=== PATIENT | female | born 1950 | race Caucasian/White ===

== ENCOUNTER → 2018-03-24 08:00 | Outpatient (CLI) | payer OTHER, SELFPAY | PROVIDERS: PCP Internal Medicine | DX: Z23 Encounter for immunization (principal) | CPT/HCPCS: 90471; 90686 ==

== ENCOUNTER → 2018-03-25 14:42 | Outpatient (CLI) | payer OTHER, SELFPAY ==
--- NOTE | 2018-03-25 | DI.MG.S_ITS ---
BILATERAL DIGITAL SCREENING MAMMOGRAM 3D/2D WITH CAD: 03/25/2018 CLINICAL: Routine screening. Comparison is made to exams dated: 02/22/2017 mammogram, 01/27/2016 mammogram, and 01/24/2015 mammogram - [facility]. There are scattered fibroglandular elements in both breasts. Current study was also evaluated with a Computer Aided Detection (CAD) system. There is a benign biopsy clip in the right breast. There also are benign biopsy clips in the left breast. No significant masses, calcifications, or other findings are seen in either breast. There has been no significant interval change. IMPRESSION: NEGATIVE There is no mammographic evidence of malignancy. A 1 year screening mammogram is recommended.(03/26/2019) This exam was interpreted at Station ID: [id number]. NOTE: For mammograms, a report in lay terms will be sent to the patient. Approximately 15% of breast malignancies will not be visualized mammographically. In the management of a palpable breast mass, a negative mammogram must not discourage biopsy of a clinically suspicious lesion. Electronically Signed By: Rachel lozano/prince:03/25/2018 16:37:13 copy to: Clara Valles letter sent: Normal Exam ACR BI-RADS Category 1: Negative 3341F
== END ==
PROVIDERS: PCP Internal Medicine; Visit Provider Internal Medicine
DX: Z12.31 Encounter for screening mammogram for malignant neoplasm of breast (principal)
CPT/HCPCS: 77063; 77067

== ENCOUNTER → 2018-12-12 11:01 | Outpatient (CLI) | payer OTHER, SELFPAY ==
[2018-12-12 12:05] LABS: Alanine Aminotransferase 41 IU/L (9-52); Albumin 4.4 g/dL (3.5-5.0); Albumin Globulin Ratio 1.4 (1.0-2.8); Alkaline Phosphatase 92 U/L (38-126); Aspartate Aminotransferase 27 IU/L (14-36); BUN Creatinine Ratio 21.1 (6-22); Bilirubin Total 0.8 mg/dL (0.2-1.3); Blood Urea Nitrogen 19 mg/dL (7-17); Calcium 9.8 mg/dL (8.4-10.2); Carbon Dioxide 28 mmol/L (22-32); Chloride 105 mmol/L (98-107); Cholesterol 161 mg/dL (140-199); Estimated Glomerular Filt Rate > 60.0 mL/min (>60); Globulin 3.1 g/dL (1.7-4.1); Glucose 101 mg/dL (80-110); HDL Cholesterol 44 mg/dL (40-60); HEMOLYSIS < 15 (0-50); LDL Cholesterol Calculated 83 mg/dL (<100); Potassium 4.4 mmol/L (3.4-5.1); Sodium 142 mmol/L (137-145); Total Protein 7.5 g/dL (6.3-8.2); Triglycerides 171 mg/dL (35-150)
[2018-12-12 12:18] LABS: Vitamin D 25 Hydroxy (D3) 40.1 ng/mL (30.0-100.0)
== END ==
PROVIDERS: PCP Internal Medicine; Visit Provider Internal Medicine
DX: E55.9 Vitamin D deficiency, unspecified (principal); E78.5 Hyperlipidemia, unspecified; I10 Essential (primary) hypertension
CPT/HCPCS: 36415; 80053; 80061; 82306

== ENCOUNTER → 2019-04-06 09:18 | Outpatient (CLI) | payer OTHER, SELFPAY ==
--- NOTE | 2019-04-06 | DI.MG.S_ITS ---
BILATERAL DIGITAL SCREENING MAMMOGRAM 3D/2D WITH CAD: 04/06/2019 CLINICAL: Routine screening. Comparison is made to exams dated: 03/25/2018 mammogram, 02/22/2017 mammogram, and 01/27/2016 mammogram - [facility]. The tissue of both breasts is heterogeneously dense. This may lower the sensitivity of mammography. Current study was also evaluated with a Computer Aided Detection (CAD) system. There is a biopsy clip in the right breast. There also are biopsy clips in the left breast. There are mole markers on both breasts. No significant masses, calcifications, or other findings are seen in either breast. There has been no significant interval change. IMPRESSION: NEGATIVE There is no mammographic evidence of malignancy. A 1 year screening mammogram is recommended. This exam was interpreted at Station ID: [id number]. NOTE: For mammograms, a report in lay terms will be sent to the patient. Approximately 15% of breast malignancies will not be visualized mammographically. In the management of a palpable breast mass, a negative mammogram must not discourage biopsy of a clinically suspicious lesion. Electronically Signed By: Edgar abraham/prince:04/06/2019 16:47:03 copy to: Clara Valles letter sent: Normal Exam ACR BI-RADS Category 1: Negative 3341F
== END ==
PROVIDERS: Family Provider Obstetrics & Gynecology; PCP Internal Medicine; Visit Provider Internal Medicine
DX: Z12.31 Encounter for screening mammogram for malignant neoplasm of breast (principal)
CPT/HCPCS: 77063; 77067

== ENCOUNTER → 2019-04-12 08:50 | Outpatient (CLI) | payer OTHER, SELFPAY ==
[2019-04-13 16:41] LABS: Cancer Antigen 125 < 6 U/mL (0-35)
== END ==
PROVIDERS: Family Provider Obstetrics & Gynecology; PCP Internal Medicine; Visit Provider Obstetrics & Gynecology
DX: R14.0 Abdominal distension (gaseous) (principal)
CPT/HCPCS: 36415; 86304

== ENCOUNTER → 2019-05-19 14:51 | Outpatient (CLI) | payer OTHER, SELFPAY | PROVIDERS: Family Provider Obstetrics & Gynecology; PCP Internal Medicine | DX: Z23 Encounter for immunization (principal) | CPT/HCPCS: 90471; 90662 ==

== ENCOUNTER → 2020-04-18 | Outpatient (CLI) | payer OTHER, SELFPAY | PROVIDERS: Family Provider Obstetrics & Gynecology; PCP Internal Medicine; Referring Provider Internal Medicine; Visit Provider Internal Medicine | DX: Z23 Encounter for immunization (principal) | CPT/HCPCS: 90471; 90662 ==

== ENCOUNTER → 2020-05-03 13:23 | Outpatient (CLI) | payer OTHER, SELFPAY ==
--- NOTE | 2020-05-03 13:25 | DI.MG.S_ITS ---
BILATERAL DIGITAL SCREENING MAMMOGRAM 3D/2D WITH CAD: 05/03/2020 CLINICAL: Routine screening. Comparison is made to exams dated: 04/06/2019 mammogram, 03/25/2018 mammogram, and 02/22/2017 mammogram - [facility]. The tissue of both breasts is heterogeneously dense. This may lower the sensitivity of mammography. Current study was also evaluated with a Computer Aided Detection (CAD) system. There is a biopsy clip in the right breast. There also are biopsy clips in the left breast. No significant masses, calcifications, or other findings are seen in either breast. There has been no significant interval change. IMPRESSION: NEGATIVE There is no mammographic evidence of malignancy. A 1 year screening mammogram is recommended. This exam was interpreted at Station ID: [id number]. NOTE: For mammograms, a report in lay terms will be sent to the patient. Approximately 15% of breast malignancies will not be visualized mammographically. In the management of a palpable breast mass, a negative mammogram must not discourage biopsy of a clinically suspicious lesion. Electronically Signed By: Chau dunn/prince:05/03/2020 17:15:21 copy to: Clara Valles letter sent: Normal Exam ACR BI-RADS Category 1: Negative 3341F
== END ==
PROVIDERS: Family Provider Obstetrics & Gynecology; PCP Internal Medicine; Referring Provider Internal Medicine; Visit Provider Internal Medicine
DX: Z12.31 Encounter for screening mammogram for malignant neoplasm of breast (principal)
CPT/HCPCS: 77063; 77067

== ENCOUNTER → 2020-07-04 10:43 | Outpatient (CLI) | payer OTHER, SELFPAY ==
[2020-07-04] MEDS: COVID-19 VACC(MODERNA-1)/PF 100 MCG/0.5 ML VIAL IM (10:51)
== END ==
PROVIDERS: Family Provider Obstetrics & Gynecology; PCP Internal Medicine; Visit Provider Internal Medicine
DX: Z23 Encounter for immunization (principal)
CPT/HCPCS: 0011A; 91301

== ENCOUNTER → 2020-07-31 10:31 | Outpatient (CLI) | payer OTHER, SELFPAY ==
[2020-07-31] MEDS: COVID-19 VACC #2, MRNA(MOD) 100 MCG/0.5 ML VIAL IM (10:32)
== END ==
PROVIDERS: Family Provider Obstetrics & Gynecology; PCP Internal Medicine; Visit Provider Internal Medicine
DX: Z23 Encounter for immunization (principal)
CPT/HCPCS: 0012A; 91301

== ENCOUNTER → 2020-12-04 08:59 | Outpatient (CLI) | payer OTHER, SELFPAY ==
[2020-12-04 10:40] LABS: Alanine Aminotransferase 46 IU/L (<35); Albumin 4.2 g/dL (3.5-5.0); Albumin Globulin Ratio 1.4 (1.0-2.8); Alkaline Phosphatase 112 U/L (38-126); Aspartate Aminotransferase 35 IU/L (14-36); BUN Creatinine Ratio 21.2 (6-22); Bilirubin Total 0.4 mg/dL (0.2-1.3); Blood Urea Nitrogen 22 mg/dL (7-17); Carbon Dioxide 27 mmol/L (22-32); Chloride 106 mmol/L (98-107); Cholesterol 185 mg/dL (140-199); Estimated Glomerular Filt Rate 52.5 mL/min (>60); Glucose 94 mg/dL (80-110); HDL Cholesterol 42 mg/dL (40-60); HEMOLYSIS < 15 (0-50); LDL Cholesterol Calculated 95 mg/dL (<100); Sodium 141 mmol/L (137-145); Total Protein 7.2 g/dL (6.3-8.2); Triglycerides 242 mg/dL (35-150)
== END ==
PROVIDERS: Family Provider Obstetrics & Gynecology; PCP Internal Medicine; Referring Provider Internal Medicine; Visit Provider Internal Medicine
DX: E78.5 Hyperlipidemia, unspecified (principal); I10 Essential (primary) hypertension; N18.2 Chronic kidney disease, stage 2 (mild)
CPT/HCPCS: 36415; 80053; 80061

== ENCOUNTER → 2021-04-03 14:24 | Outpatient (CLI) | payer OTHER, SELFPAY | PROVIDERS: Family Provider Obstetrics & Gynecology; PCP Internal Medicine; Referring Provider Internal Medicine; Visit Provider Internal Medicine | DX: Z23 Encounter for immunization (principal) | CPT/HCPCS: 90471; 90662 ==

== ENCOUNTER → 2021-05-05 16:59 | Outpatient (CLI) | payer OTHER, SELFPAY ==
--- NOTE | 2021-05-05 | DI.MG.S_ITS ---
BILATERAL DIGITAL SCREENING MAMMOGRAM 3D/2D WITH CAD: 05/05/2021 CLINICAL: Routine screening. Comparison is made to exams dated: 05/03/2020 mammogram, 04/06/2019 mammogram, and 03/25/2018 mammogram - [facility]. The tissue of both breasts is heterogeneously dense. This may lower the sensitivity of mammography. Current study was also evaluated with a Computer Aided Detection (CAD) system. There is a biopsy clip in the right breast. There also are biopsy clips in the left breast. No significant masses, calcifications, or other findings are seen in either breast. There has been no significant interval change. IMPRESSION: NEGATIVE There is no mammographic evidence of malignancy. A 1 year screening mammogram is recommended. This exam was interpreted at Station ID: [id number]. NOTE: For mammograms, a report in lay terms will be sent to the patient. Approximately 15% of breast malignancies will not be visualized mammographically. In the management of a palpable breast mass, a negative mammogram must not discourage biopsy of a clinically suspicious lesion. Electronically Signed By: Chau dunn/prince:05/06/2021 08:48:12 copy to: Clara Valles letter sent: Normal Exam ACR BI-RADS Category 1: Negative 3341F
== END ==
PROVIDERS: Family Provider Obstetrics & Gynecology; PCP Internal Medicine; Referring Provider Internal Medicine; Visit Provider Internal Medicine
DX: Z12.31 Encounter for screening mammogram for malignant neoplasm of breast (principal)
CPT/HCPCS: 77063; 77067

== ENCOUNTER → 2021-05-16 09:28 | Outpatient (CLI) | payer OTHER, SELFPAY ==
[2021-05-16] MEDS: COVID-19 VACC #3, MRNA(MOD) 50 MCG/0.25 ML VIAL IM (09:35)
== END ==
PROVIDERS: Family Provider Obstetrics & Gynecology; PCP Internal Medicine; Visit Provider Internal Medicine
DX: Z23 Encounter for immunization (principal)
CPT/HCPCS: 0013A; 91301

== ENCOUNTER → 2022-04-14 16:18 | Outpatient (CLI) | payer OTHER, SELFPAY | PROVIDERS: Family Provider Obstetrics & Gynecology; PCP Internal Medicine; Referring Provider Internal Medicine; Visit Provider Internal Medicine | DX: Z23 Encounter for immunization (principal) | CPT/HCPCS: 90471; 90662 ==

== ENCOUNTER → 2022-06-01 15:53 | Outpatient (CLI) | payer OTHER, SELFPAY ==
--- NOTE | 2022-06-01 15:54 | DI.MG.S_ITS ---
BILATERAL DIGITAL SCREENING MAMMOGRAM 3D/2D WITH CAD: 06/01/2022 CLINICAL: Routine screening. Comparison is made to exams dated: 05/05/2021 mammogram, 05/03/2020 mammogram, 04/06/2019 mammogram, and 03/25/2018 mammogram - [facility]. Both breasts are heterogeneously dense, which may obscure small masses (category c / 51-75% glandular tissue). Current study was also evaluated with a Computer Aided Detection (CAD) system. There is a biopsy clip in the right breast. There also are biopsy clips in the left breast. No significant masses, calcifications, or other findings are seen in either breast. There has been no significant interval change. IMPRESSION: NEGATIVE There is no mammographic evidence of malignancy. A 1 year screening mammogram is recommended. Based on the Tyrer Cuzick model (a risk assessment model) the patient's lifetime risk is 5.9% and her 10 year risk is 4.0%. According to the ACR, ACS, and NCCN guidelines, an annual breast MRI exam along with mammogram is recommended if the patient's lifetime risk is 20% or greater. This exam was interpreted at Station ID: [id number]. NOTE: For mammograms, a report in lay terms will be sent to the patient. Approximately 15% of breast malignancies will not be visualized mammographically. In the management of a palpable breast mass, a negative mammogram must not discourage biopsy of a clinically suspicious lesion. Electronically Signed By: Joni weber/prince:06/02/2022 08:03:08 copy to: Clara Valles letter sent: Normal Exam ACR BI-RADS Category 1: Negative 3341F
== END ==
PROVIDERS: Family Provider Obstetrics & Gynecology; PCP Internal Medicine; Referring Provider Obstetrics & Gynecology; Visit Provider Obstetrics & Gynecology
DX: Z12.31 Encounter for screening mammogram for malignant neoplasm of breast (principal)
CPT/HCPCS: 77063; 77067

== ENCOUNTER → 2022-09-22 10:21 | Outpatient (CLI) | payer OTHER, SELFPAY ==
[2022-09-22 11:12] LABS: Alanine Aminotransferase 35 IU/L (<35); Albumin 4.2 g/dL (3.5-5.0); Albumin Globulin Ratio 1.2 (1.0-2.8); Alkaline Phosphatase 105 U/L (38-126); Aspartate Aminotransferase 26 IU/L (14-36); BUN Creatinine Ratio 18.9 (6-22); Bilirubin Total 0.8 mg/dL (0.2-1.3); Blood Urea Nitrogen 17 mg/dL (7-17); Calcium 9.5 mg/dL (8.4-10.2); Carbon Dioxide 30 mmol/L (22-32); Chloride 104 mmol/L (98-107); Cholesterol 163 mg/dL (140-199); Estimated Glomerular Filt Rate > 60 mL/min (>60); Globulin 3.5 g/dL (1.7-4.1); Glucose 103 mg/dL (80-110); HDL Cholesterol 40 mg/dL (40-60); HEMOLYSIS < 15 (0-50); LDL Cholesterol Calculated 87 mg/dL (<100); Magnesium 2.1 mg/dL (1.6-2.3); Sodium 140 mmol/L (137-145); Total Protein 7.7 g/dL (6.3-8.2); Triglycerides 181 mg/dL (35-150)
[2022-09-22 11:43] LABS: Rubella Antibody IgG 69.2 IU/mL (>15)
[2022-09-22 11:59] LABS: Vitamin B12 271 pg/mL (239-931)
[2022-09-23 12:37] LABS: Rubeola Measles IgG > 300.0 AU/mL (Immune >16.4)
[2022-09-25 09:38] LABS: Mumps Virus IgG Antibody 23.7 AU/mL (Immune >10.9)
== END ==
PROVIDERS: Family Provider Obstetrics & Gynecology; PCP Internal Medicine; Referring Provider Internal Medicine; Visit Provider Internal Medicine
DX: E78.5 Hyperlipidemia, unspecified (principal); I10 Essential (primary) hypertension; I73.00 Raynaud's syndrome without gangrene; N18.30 Chronic kidney disease, stage 3 unspecified
CPT/HCPCS: 36415; 80053; 80061; 82607; 83735; 86735; 86762; 86765

== ENCOUNTER → 2023-10-25 10:46 | Outpatient (CLI) | payer MEDICARE, BC, SELFPAY ==
--- NOTE | 2023-10-25 10:48 | DI.RAD.S_ITS ---
PROCEDURE: XR DEXA AXIAL SKELETON INDICATIONS: osteoporosis COMPARISON: [facility], , DEXA AXIAL SKELETON, 09/17/2016, 10:51. FINDINGS: Lumbar Spine: Bone mineral density 0.988 g/cm2, T score -0.5. Left Hip: Bone mineral density 0.713 g/cm2, T score -1.9. Left Femoral Neck: Bone mineral density 0.697 g/cm2, T score -1.4. Right Hip: Bone mineral density 0.737 g/cm2, T score -1.7. Right Femoral Neck: Bone mineral density 0.788 g/cm2, T score -0.5. Fracture Risk Calculation (when applicable): 10-year fracture risk of a major osteoporotic fracture 8.3% and of a hip fracture 0.8%. (T score greater or equal to -1.0 to: NORMAL) (T score from -1.1 to -2.4: OSTEOPENIA) (T score less than or equal to -2.5: OSTEOPOROSIS) IMPRESSION: 1. Osteopenia of the bilateral hips. Follow-up guidelines as follows: Osteoporosis: Consider a repeat DEXA and Vertebral Fracture Assessment (VFA) exam in 2 years or sooner if medically necessary, to reassess this patient's status. Osteopenia: Consider a repeat DEXA in 2-3 years to reassess this patient's status, or if there is a new clinical indication. Normal: Consider a repeat DEXA in 5 years or sooner, or if there is a new clinical indication. Dictated by: Rachel Nolen M.D. on 10/25/2023 at 13:17 Approved by: Rachel Nolen M.D. on 10/25/2023 at 14:27
== END ==
PROVIDERS: Family Provider Obstetrics & Gynecology; PCP Internal Medicine; Referring Provider Internal Medicine; Visit Provider Internal Medicine
DX: M85.89 Other specified disorders of bone density and structure, multiple sites (principal)
CPT/HCPCS: 77080

== ENCOUNTER → 2023-12-13 11:24 | Outpatient (CLI) | payer MEDICARE, BC, SELFPAY ==
[2023-12-13 13:51] LABS: Add Manual Diff / Slide Review NO; Basophils Absolute Auto 0 /uL (0-100); Basophils Percent Auto 0.6 % (0-2); Eosinophils Absolute Auto 100 /uL (0-450); Eosinophils Percent Auto 1.7 % (2-4); Hematocrit 38.8 % (36-46); Hemoglobin 13.5 g/dL (12.0-16.0); Lymphocytes Absolute Auto 1600 /uL (1100-4500); Lymphocytes Percent Auto 25.1 % (25-40); Mean Corpuscular HGB Conc 34.7 % (30-36); Mean Corpuscular Hemoglobin 31.4 PG (26-34); Mean Corpuscular Volume 90.5 fL (80-100); Monocytes Absolute Auto 400 /uL (0-900); Monocytes Percent Auto 6.9 % (3-14); Neutrophils Absolute Auto 4100 /uL (1500-7000); Neutrophils Percent Auto 65.7 % (50-75); Platelet Count 186 X10^3/uL (150-400); Red Blood Cell Count 4.29 X10^6/uL (4.0-5.2); Red Cell Distribution Width 13.8 % (11.6-14.8); White Blood Cell Count 6.2 X10^3/uL (4.5-11.0)
[2023-12-13 14:27] LABS: Alanine Aminotransferase 27 IU/L (<35); Albumin Globulin Ratio 1.4 (1.0-2.8); Alkaline Phosphatase 99 U/L (38-126); Aspartate Aminotransferase 23 IU/L (14-36); BUN Creatinine Ratio 17.4 (6-22); Bilirubin Total 0.8 mg/dL (0.2-1.3); Blood Urea Nitrogen 19 mg/dL (7-17); Calcium 9.1 mg/dL (8.4-10.2); Carbon Dioxide 29 mmol/L (22-32); Chloride 107 mmol/L (98-107); Cholesterol 183 mg/dL (140-199); Estimated Glomerular Filt Rate 54 mL/min (>60); Globulin 2.8 g/dL (1.7-4.1); Glucose 89 mg/dL (80-110); HDL Cholesterol 48 mg/dL (40-60); HEMOLYSIS < 15 (0-50); LDL Cholesterol Calculated 84 mg/dL (<100); Potassium 4.3 mmol/L (3.4-5.1); Sodium 140 mmol/L (137-145); Total Protein 6.8 g/dL (6.3-8.2); Triglycerides 256 mg/dL (35-150)
== END ==
PROVIDERS: Family Provider Obstetrics & Gynecology; PCP Internal Medicine; Referring Provider Internal Medicine; Visit Provider Internal Medicine
DX: I10 Essential (primary) hypertension (principal); E78.5 Hyperlipidemia, unspecified
CPT/HCPCS: 36415; 80053; 80061; 85025

== ENCOUNTER → 2024-01-04 12:36 | Outpatient (CLI) | payer MEDICARE, BC, SELFPAY ==
--- NOTE | 2024-01-04 12:37 | DI.MG.S_ITS ---
BILATERAL DIGITAL SCREENING MAMMOGRAM 3D/2D WITH CAD: 01/04/2024 CLINICAL: Routine screening. Comparison is made to exams dated: 06/01/2022 mammogram, 05/03/2020 mammogram, and 05/05/2021 mammogram - [facility]. Both breasts are heterogeneously dense, which may obscure small masses (category c / 51-75% glandular tissue). Current study was also evaluated with a Computer Aided Detection (CAD) system. There is a biopsy clip in the right breast. There also are biopsy clips in the left breast. No significant masses, calcifications, or other findings are seen in either breast. There has been no significant interval change. IMPRESSION: NEGATIVE There is no mammographic evidence of malignancy. A 1 year screening mammogram is recommended. Based on the Tyrer Cuzick model (a risk assessment model) the patient's lifetime risk is 5.5% and her 10 year risk is 4.1%. According to the ACR, ACS, and NCCN guidelines, an annual breast MRI exam along with mammogram is recommended if the patient's lifetime risk is 20% or greater. This exam was interpreted at Station ID: [id number]. NOTE: For mammograms, a report in lay terms will be sent to the patient. Approximately 15% of breast malignancies will not be visualized mammographically. In the management of a palpable breast mass, a negative mammogram must not discourage biopsy of a clinically suspicious lesion. Electronically Signed By: Prasanth jason/prince:01/04/2024 16:29:55 copy to: Clara Valles letter sent: Normal Exam ACR BI-RADS Category 1: Negative 3341F
== END ==
PROVIDERS: Family Provider Obstetrics & Gynecology; PCP Internal Medicine; Referring Provider Internal Medicine; Visit Provider Internal Medicine
DX: Z12.31 Encounter for screening mammogram for malignant neoplasm of breast (principal); R92.333 Mammographic heterogeneous density, bilateral breasts
CPT/HCPCS: 77063; 77067

== ENCOUNTER 2024-03-02 10:46 | Day surgery (SDC) | payer MEDICARE, OTHER, SELFPAY ==
--- NOTE | 2024-03-02 | PATH_ITS ---
[facility] Accession Number: [id number] No. of containers..01 Tissue . 01 Material submitted: . colon - DESCENDING COLON POLYP . 01 Diagnosis: DESCENDING COLON POLYP: Tubular adenoma. MRV 03/06/2024 1121 Local . 01 Electronically signed: . Navin Julian MD, PhD, Pathologist NPI- [id number] . 01 Gross description: . Received in formalin with two patient identifiers and descending colon polyp, are three de dios soft tissue fragments ranging from 0.5 x 0.4 x 0.3 cm to 0.8 x 0.6 x 0.5 cm. The largest fragments are inked and bisected. All submitted in A1. ([id number]) /MRV 03/03/2024 1800 Local . 01 Pathologist provided ICD-10: D12.4 . 01 CPT . 896257 Specimen Comment: A courtesy copy of this report has been sent to [phone] Performed at: [address] [id number] MD Chau Wiggins MD Phone: [phone]
[2024-03-02] MEDS: LACTATED RINGERS 1,000 ML 150 ML IV (11:09)
[2024-03-02 11:17] VITALS: BP 167/86; PULSE 85; RESP 16; TEMP 36.3; O2SAT 99
--- NOTE | 2024-03-02 11:43 | P.HP_ITS ---
History of Present Illness History of Present Illness Date Patient Seen: 03/02/24 Time Patient Seen: 11:43 Chief complaint: Screening Colonoscopy Narrative: Noreen is a 74-year-old woman who has a history of colon polyps. No family history cancer REPLACED BY [facility] Medical History (Updated 12/22/22 @ 15:13 by Saeid Hampton MD) Gastric polyp History of abnormal cervical Pap smear Chronic renal failure, stage 3 (moderate) Hx of adenomatous colonic polyps LGSIL on Pap smear of cervix Osteopenia of multiple sites (09/25/16) Hypertension Hyperlipidemia Raynaud's disease (08/03/11) Diverticulosis of large intestine (08/03/11) Gastroesophageal reflux disease without esophagitis (08/03/11) Menopausal syndrome (08/03/11) Surgical History Status post breast biopsy (12/02/12) Family History Father Family history of NV (myocardial infarction) Mother Family history of NV (myocardial infarction) Grandfather Family history of NV (myocardial infarction) Social History marital status: number of children: 3 (1 ) household members: none lives independently: Yes caregiver/support person: No housing: house pets and animals: Yes education level: college occupational status: employed ([employer]) sean/yarsani: Rastafari leisure activities: other ([place]amping, [place] during summer, Movies, Dinner, Shopping.) Smoking Status: Former smoker Tobacco: How many years used: 20 Smokeless tobacco user: other (Cigarettes) quit status: quit date established (~1991) second hand exposure: No alcohol intake: current substance use type: does not use Meds Home Medications and Allergies Home Medications Medication Instructions Recorded Confirmed Type cholecalciferol (vitamin D3) 25 1,000 unit PO DAILY 11/24/18 02/18/24 History mcg (1,000 unit) capsule clobetasol 0.05 % topical ointment 1 applic topical .2x/week #30 grams 08/26/22 02/18/24 Rx estradiol 0.01% (0.1 mg/gram) 1 g vaginal QWEEK #42.5 grams 08/26/22 02/18/24 Rx vaginal cream (Estrace) cetirizine 10 mg tablet 10 mg PO DAILY allergy symptoms 07/26/23 02/18/24 Rx #90 tabs atorvastatin 40 mg tablet 20 mg (1/2 x 40 mg) PO QDAY #45 08/31/23 02/18/24 Rx tabs atenolol 25 mg tablet 12.5 mg (1/2 x 25 mg) PO QDAY #90 10/05/23 03/02/24 Rx tabs sucralfate 1 gram tablet 1 g PO PRN #120 tabs 12/13/23 02/18/24 Rx omeprazole 40 mg capsule,delayed 40 mg PO QDAY #30 caps 01/06/24 02/18/24 Rx release peg 3350-sod sulf,qllhw-dpw-lum 1,000 ml PO DIRECTED #2,000 mL 02/01/24 02/18/24 Rx 178.7-7.3-0.5-1.12-0.9 gram oral soln (Suflave) estradiol 0.01% (0.1 mg/gram) 0.5 g vaginal 2XW #42.5 grams 02/18/24 02/18/24 Rx vaginal cream (Estrace) fluconazole 150 mg tablet 150 mg PO ONCE #2 tabs 02/18/24 02/18/24 Rx nystatin-triamcinolone 100,000 1 applic topical BID #30 grams 02/18/24 02/18/24 Rx unit/gram-0.1 % topical ointment Allergies Allergy/AdvReac Type Severity Reaction Status Date / Time pseudoephedrine Allergy Mild INCREASED Verified 03/02/24 11:10 HEART RATE Exam Vital Signs (past 8 hours): - 03/02/24 11:17 Temperature 97.4 F L Pulse Rate 85 Respiratory Rate 16 Blood Pressure 167/86 H Pulse Oximetry 99 Oxygen Delivery Method Room Air Oxygen Delivery Method Room Air Const General: No acute distress Resp Effort & Inspection: normal respiratory effort Assessment & Plan Assessment and plan (1) Hx of adenomatous colonic polyps: Status: Inactive Plan We reviewed the risks and benefits of colonoscopy and she would like to proceed. Time-Based Coding :: [TOTAL MINUTES] spent with patient and on the chart (including review of chart, obtaining history, exam, reviewing outside data, placing orders, documenting exam and treatment plan, and counseling patient) on [DATE].
[2024-03-02 12:07] VITALS: BP 101/51; PULSE 56; RESP 18; TEMP 36.2; O2SAT 99
--- NOTE | 2024-03-02 12:08 | PM.OP.COLON ---
Operative Date/Time/Diagnoses Date of procedure: 03/02/24 Time of procedure: 12:08 Pre-op diagnosis: History of polyps Post-op diagnosis: same Procedure & Clinicians Study performed: Colonoscopy Same procedure as scheduled: Yes Surgeon: Diaz Marie Procedure Notes Procedure in detail: Surgeon: Diaz Marie MD Anesthesia: Trish Beach CRNA Procedure: The patient was brought to the endoscopy suite, placed in left lateral decubitus position. The patient was connected to monitoring devices. A time-out was performed. Sedation was administered. Once the patient was adequately sedated, a digital rectal exam was performed and was normal. The scope was then inserted and advanced to the cecum where the appendiceal orifice was identified and photographed. The scope was then slowly withdrawn over greater than 6 minutes. The mucosa was thoroughly inspected. There was a 1 cm polyp in the descending colon removed with a cold snare. There was pandiverticulosis. The scope was retroflexed in the rectum. Internal hemorrhoids were noted. The scope was straightened and removed. The patient was awakened and brought to recovery. Scope withdrawal time: 7 minutes Sedation time: 11 minutes EBL: 2 mL Findings: 1 cm polyp in the descending colon, pandiverticulosis Post-procedure Disposition: PACU
[2024-03-02 12:12] VITALS: BP 105/51; PULSE 58; RESP 17; TEMP 36.3; O2SAT 100
[2024-03-02 12:18] VITALS: BP 112/55; PULSE 57; RESP 16; TEMP 36.2; O2SAT 100
[2024-03-02 12:23] VITALS: BP 121/50; PULSE 61; RESP 19; O2SAT 100
== END 2024-03-02 12:53 | disposition home or self-care (01) ==
PROVIDERS: Family Provider Obstetrics & Gynecology; PCP Internal Medicine; Referring Provider Surgery; Visit Provider Surgery
PROC: 0DJD8ZZ Inspection of Lower Intestinal Tract, Via Natural or Artificial Opening Endoscopic (ICD-10-PCS; CPT 45378; principal; 2024-03-02 11:45)
DX: Z12.11 Encounter for screening for malignant neoplasm of colon (principal); D12.4 Benign neoplasm of descending colon; K57.30 Diverticulosis of large intestine without perforation or abscess without bleeding; Z86.010 Personal history of colon polyps
CPT/HCPCS: 45385; J2704

== ENCOUNTER 2024-06-23 10:43 | Emergency (ER) | payer MEDICARE, OTHER, SELFPAY ==
[2024-06-23] VITALS (11 sets, daily range): BP systolic 160–186; BP diastolic 74–115; PULSE 82–108; RESP 16–23; TEMP 36.5; O2SAT 97–100; BMI 27.4
--- NOTE | 2024-06-23 11:11 | EKG_ITS ---
[facility] [address] [place] [address] Test Date: 2024-06-23 Pat Name: Noreen Harrington Department: [facility] Room: Gender: Female Greenhouse Assistant: MAGGIE : 1950 Requested By: Order Number: [id number] Reading MD: Dewayne Tsai Measurements Intervals [place] Rate: 94 P: 73 AR: 154 QRS: 21 QRSD: 78 T: 88 QT: 350 QTc: 437 Interpretive Statements Normal sinus rhythm Nonspecific ST and T wave abnormality Electronically Signed On 06-29-2024 9:04:20 PST by Dewayne Tsai
--- NOTE | 2024-06-23 11:55 | ED_ITS ---
HPI - GI Bleed General Chief complaint: GI Bleed Stated complaint: Went to the bathroom , red stuff poring out Time Seen by Provider: 06/23/24 11:55 Source: patient Mode of arrival: Ambulatory History of Present Illness HPI Narrative: 74-year-old woman with a history of hyperlipidemia, hypertension, reflux, chronic kidney disease who got up this morning was feeling well had the urge to defecate and had bright red blood coming out of her bottom not associated with any stool. She has had 4 more episodes of such. Most recent episode she describes the blood as slightly darker/maroon colored. She has no pain, no nausea or vomiting. She had a colonoscopy in March that showed diverticula and polyp that was removed otherwise. No history of coagulopathy, not anticoagulated. Related Data Home Medications Medication Instructions Recorded Confirmed cholecalciferol (vitamin D3) 25 1,000 unit PO DAILY 11/24/18 03/29/24 mcg (1,000 unit) capsule Previous Rx's Medication Instructions Recorded clobetasol 0.05 % topical ointment 1 applic topical .2x/week #30 grams 08/26/22 estradiol 0.01% (0.1 mg/gram) 1 g vaginal QWEEK #42.5 grams 08/26/22 vaginal cream (Estrace) cetirizine 10 mg tablet 10 mg PO DAILY allergy symptoms 07/26/23 #90 tabs atorvastatin 40 mg tablet 20 mg (1/2 x 40 mg) PO QDAY #45 08/31/23 tabs atenolol 25 mg tablet 12.5 mg (1/2 x 25 mg) PO QDAY #90 10/05/23 tabs peg 3350-sod sulf,olebg-urf-tdg 1,000 ml PO DIRECTED #2,000 mL 02/01/24 178.7-7.3-0.5-1.12-0.9 gram oral soln (Suflave) estradiol 0.01% (0.1 mg/gram) 0.5 g vaginal 2XW #42.5 grams 02/18/24 vaginal cream (Estrace) fluconazole 150 mg tablet 150 mg PO ONCE #2 tabs 02/18/24 nystatin-triamcinolone 100,000 1 applic topical BID #30 grams 02/18/24 unit/gram-0.1 % topical ointment sucralfate 1 gram tablet 1 g PO PRN #120 tabs 04/11/24 omeprazole 40 mg capsule,delayed 40 mg PO QDAY #90 caps 06/15/24 release Allergies Allergy/AdvReac Type Severity Reaction Status Date / Time pseudoephedrine Allergy Mild INCREASED Verified 03/29/24 14:16 HEART RATE Review of Systems Review of Systems Narrative: Pertinent positive and negative findings as per HPI Patient History Medical History (Updated 06/23/24 @ 16:29 by Eleanor Reed MD) Gastric polyp History of abnormal cervical Pap smear Chronic renal failure, stage 3 (moderate) Hx of adenomatous colonic polyps LGSIL on Pap smear of cervix Osteopenia of multiple sites (09/25/16) Hypertension Hyperlipidemia Raynaud's disease (08/03/11) Diverticulosis of large intestine (08/03/11) Gastroesophageal reflux disease without esophagitis (08/03/11) Menopausal syndrome (08/03/11) Surgical History Status post breast biopsy (12/02/12) Family History Father Family history of [place] (myocardial infarction) Mother Family history of [place] (myocardial infarction) Grandfather Family history of [place] (myocardial infarction) Social History marital status: number of children: 3 (1 ) household members: none lives independently: Yes caregiver/support person: No housing: house pets and animals: Yes education level: college occupational status: employed ([employer]) sean/confucianism: Scientologist leisure activities: other ([place], [place] during summer, Movies, Dinner, Shopping.) Smoking Status: Former smoker Tobacco: How many years used: 20 Smokeless tobacco user: other (Cigarettes) quit status: quit date established (~1991) second hand exposure: No alcohol intake: current substance use type: does not use Smoking Status: Former smoker alcohol intake frequency: holidays/special occasions only Exam Initial Vital Signs Initial Vital Signs: Vital Signs Temperature 97.7 F 06/23/24 11:08 Pulse Rate 103 H 06/23/24 11:08 Respiratory Rate 16 06/23/24 11:08 Blood Pressure 178/85 H 06/23/24 11:08 Pulse Oximetry 98 06/23/24 11:08 Oxygen Delivery Method Room Air 06/23/24 11:08 General: Healthy appearing, in no acute distress. Able to give a complete and coherent history. Well-nourished well-developed HEENT: Moist mucous membranes, normal sclera with reactive pupils, Respiratory: Lungs Full and symmetrical air movement Cardiac: Tachycardic but otherwise Regular rate and rhythm no murmurs no bruits Abdomen: Soft, nontender, hyperactive good bowel tones, no flank pain Skin: Warm and dry, no rashes Neurologic: Grossly neurologically intact with no obvious asymmetries or abnormalities Extremities: No trauma, well perfused Psych: Cooperative, appropriate insight and affect Course Orders Ordered: ED Orders 06/23/24 11:11 EKG-12 Lead Stat 06/23/24 11:24 Complete Blood Count AUTO DIFF Stat Comprehensive Metabolic Panel Stat PTT Partial Thromboplastin Moody Stat Prothrombin Time INR Stat Type and Screen Stat 06/23/24 11:55 Occult Blood Screen Stat Ondansetron HCl (Ondansetron 4 Mg/2 Ml Inj) 4 mg IV NOW PRN PRN Reason: Nausea And Vomiting Ondansetron HCl (Ondansetron 4 Mg Odt) 4 mg SL NOW PRN PRN Reason: Nausea And Vomiting Discontinued Medications Sodium Chloride (Normal Saline 0.9%) 1,000 mls @ 1,000 mls/hr IV BOLUS ONE Stop: 06/23/24 13:03 Last Infusion: 06/23/24 13:36 Dose: Infused Documented By: Admin: 06/23/24 12:18 Dose: 1,000 mls/hr Documented By: MARINE Pantoprazole Sodium (Pantoprazole 40 Mg Vial) 80 mg IV NOW ONE Stop: 06/23/24 11:12 Last Admin: 06/23/24 11:59 Dose: 80 mg Documented By: ANTHONY Vital Signs Vital signs: Vital Signs - 8 hr 06/23/24 11:08 06/23/24 12:09 06/23/24 12:10 Temperature 97.7 F Pulse Rate 103 H 91 H Respiratory Rate 16 22 Blood Pressure 178/85 H 160/86 H Pulse Oximetry 98 100 Oxygen Delivery Method Room Air 06/23/24 12:10 06/23/24 12:30 06/23/24 12:30 Temperature Pulse Rate 91 H 84 Respiratory Rate 18 18 Blood Pressure 164/78 H Pulse Oximetry 100 98 Oxygen Delivery Method 06/23/24 13:00 06/23/24 13:00 06/23/24 14:19 Temperature Pulse Rate 82 93 H Respiratory Rate 23 18 Blood Pressure 186/81 H 160/115 H Pulse Oximetry 99 99 Oxygen Delivery Method 06/23/24 14:30 06/23/24 15:00 06/23/24 15:22 Temperature Pulse Rate 92 H 88 108 H Respiratory Rate 20 21 18 Blood Pressure 178/83 H 172/81 H 184/86 H Pulse Oximetry 99 97 98 Oxygen Delivery Method 06/23/24 15:30 06/23/24 16:00 Temperature Pulse Rate 93 H 93 H Respiratory Rate 22 20 Blood Pressure 160/84 H 178/74 H Pulse Oximetry 100 99 Oxygen Delivery Method Room Air Room Air MDM - GI Bleed Lab Data 06/23/24 11:24 06/23/24 11:24 Labs: Lab Results 06/23/24 06/23/24 Range/Units 11:24 11:55 WBC 8.1 (4.5-11.0) X10^3/uL RBC 4.50 (4.0-5.2) X10^6/uL Hgb 13.9 (12.0-16.0) g/dL Hct 40.3 (36-46) % MCV 89.5 (80-100) fL MCH 30.8 (26-34) PG MCHC 34.5 (30-36) % RDW 13.2 (11.6-14.8) % Plt Count 217 (150-400) X10^3/uL Neut % (Auto) 75.5 H (50-75) % Lymph % (Auto) 17.1 L (25-40) % [place] % (Auto) 5.2 (3-14) % Eos % (Auto) 1.5 L (2-4) % Baso % (Auto) 0.7 (0-2) % Neut # (Auto) 6100 (7283-2273) /uL Lymph # (Auto) 1400 (3894-1913) /uL [place] # (Auto) 400 (0-900) /uL Eos # (Auto) 100 (0-450) /uL Baso # (Auto) 100 (0-100) /uL PT 11.6 (9.4-12.5) SECONDS INR 1.0 (0.9-1.3) APTT 31 (25.1-36.5) SECONDS Sodium 138 (137-145) mmol/L Potassium 3.4 (3.4-5.1) mmol/L Chloride 105 (98-107) mmol/L Carbon Dioxide 28 (22-32) mmol/L BUN 16 (7-17) mg/dL Creatinine 1.11 H (0.52-1.04) mg/dL Estimated GFR 52 L (>60) mL/min BUN/Creatinine Ratio 14.4 (6-22) Glucose 104 (80-110) mg/dL Calcium 9.3 (8.4-10.2) mg/dL Total Bilirubin 1.1 (0.2-1.3) mg/dL AST 24 (14-36) IU/L ALT 20 (<35) IU/L Alkaline Phosphatase 108 (38-126) U/L Total Protein 7.4 (6.3-8.2) g/dL Albumin 4.0 (3.5-5.0) g/dL Globulin 3.4 (1.7-4.1) g/dL Albumin/Globulin Ratio 1.2 (1.0-2.8) Stool Occult Blood Positive H (Negative) Blood Type A Positive Antibody Screen Negative Urine Dip Bedside Urine Glucose Negative Bedside Urine Bilirubin - Negative Bedside Urine Ketone - Negative Urine Specific [place] 1.005 Bedside Urine Occult Blood +/- Bedside Urine pH 6.5 Bedside Urine Protein - Negative Bedside Urine Urobilinogen - Negative Bedside Urine Nitrite - Negative Bedside Urine Leukocytes - Negative Esterase MDM Narrative Medical decision making narrative: CC: Bright red bleeding per rectum Complicating co-morbidities: Hypertension, hyperlipidemia, chronic renal disease, postmenopausal Data collected from: patient Medical records reviewed: Primary care, Gynecology and recent colonoscopy notes reviewed Differential considered: Diverticular bleeding, upper GI bleeding, hemorrhoidal bleeding Exam documented above, pertinent findings include: Patient is having no pain, slightly tachycardic slightly pale room air sats were appropriate Lab Test results independently reviewed as above. Pertinent findings: CBC is reassuring with white count at 8.1, initial H&H at 13.9 and 40.3 Independently reviewed EKG: Sinus rhythm rate of 94 nonspecific STT wave changes Treatments: Normal saline Discussion: 74-year-old woman with no prior history of GI bleeding, recent fairly unremarkable colonoscopy in March of this year presents with bright red blood per rectum. Pain-free not associated with a bowel movement. She describes initially a large amount of clot in the subsequent 3-4 episodes with decreasing blood in the final episode with darker red blood. She has been observed in the emergency department for 5 hours and has not had any additional bleeding over the last 4 hours. She was slightly tachycardic and heart rate has come down nicely with a L of fluid. There was no evidence of acute anemia, at this point she is hemodynamically stable it does appear that the bleeding has slowed stopped. We had a long discussion regarding diverticular bleeding I do not suspect that this is upper GI bleeding or hemorrhoidal bleeding at this point. Recommended discharge home with return if bleeding continues. Requested she follow up with her primary care physician in 2-3 weeks. There was no indication for hospitalization at this time and she is safely discharge Discharge Plan Departure Patient Disposition: Home Clinical Impression: Diverticular hemorrhage Activity Restrictions/Additional Instructions: Thank you for coming in today Based on the history of your bleeding, the description of slightly less with each episode in the darker red with the most recent episode, your recent reassuring colonoscopy with diverticula found and normal blood work with no signs of anemia, I believe that you had a small diverticular bleed. Most of these episodes are going to fix themselves in the less we do, the better your body is. I am going to send you home, you do not need to follow any specific diet or any limitations. If you note that you are having recurrent bleeding with large clots, you do need to return to the emergency department I would recommend a follow up visit with your primary care doctor in 2-3 weeks Prescriptions: No Action cetirizine 10 mg tablet 10 mg PO DAILY Qty: 90 3RF atorvastatin 40 mg tablet 20 mg PO QDAY Qty: 45 3RF atenolol 25 mg tablet 12.5 mg PO QDAY Qty: 90 1RF Suflave 178.7-7.3-0.5 gram recon soln 1,000 ml PO DIRECTED Qty: 2000 0RF Rx Instructions: take as directed by Physician sucralfate 1 gram tablet 1 g PO PRN Qty: 120 1RF omeprazole 40 mg capsule,delayed release(DR/EC) 40 mg PO QDAY Qty: 90 1RF Rx Instructions: APPT/ANNUAL CHECK IN DUE 09/2024. PLEASE CALL TO SCHEDULE FUTURE APPT. THANK YOU 06/15/24 estradiol [Estrace] 0.01 % (0.1 mg/gram) cream 1 g VAG QWEEK Qty: 42.5 3RF Rx Instructions: 0.5gm intravaginal and small amount to the outside twice a week clobetasol 0.05 % ointment 1 applic topical .2x/week Qty: 30 3RF estradiol [Estrace] 0.01 % (0.1 mg/gram) cream 0.5 g vaginal 2XW Qty: 42.5 3RF Rx Instructions: 0.5gm in vagina and small amount to the outside twice a week fluconazole 150 mg tablet 150 mg PO ONCE Qty: 2 0RF Rx Instructions: take one tab today, repeat in 5 days nystatin-triamcinolone 100,000-0.1 unit/gram-% ointment 1 applic topical BID Qty: 30 1RF Rx Instructions: apply to effected area twice a day for 2-3 wks or until rash is gone cholecalciferol (vitamin D3) 1,000 unit capsule 1,000 unit PO DAILY Referrals: Saeid Hampton MD [Primary Care Provider] - Stand Alone Forms: Patient Portal/API/Survey
[2024-06-23] MEDS: PANTOPRAZOLE 40 MG VIAL 80 MG IV (11:59)
[2024-06-23 12:00] LABS: Add Manual Diff / Slide Review NO; Basophils Absolute Auto 100 /uL (0-100); Basophils Percent Auto 0.7 % (0-2); Eosinophils Absolute Auto 100 /uL (0-450); Eosinophils Percent Auto 1.5 % (2-4); Hematocrit 40.3 % (36-46); Hemoglobin 13.9 g/dL (12.0-16.0); Lymphocytes Absolute Auto 1400 /uL (1100-4500); Lymphocytes Percent Auto 17.1 % (25-40); Mean Corpuscular HGB Conc 34.5 % (30-36); Mean Corpuscular Hemoglobin 30.8 PG (26-34); Mean Corpuscular Volume 89.5 fL (80-100); Monocytes Absolute Auto 400 /uL (0-900); Monocytes Percent Auto 5.2 % (3-14); Neutrophils Absolute Auto 6100 /uL (1500-7000); Neutrophils Percent Auto 75.5 % (50-75); Platelet Count 217 X10^3/uL (150-400); Red Cell Distribution Width 13.2 % (11.6-14.8); White Blood Cell Count 8.1 X10^3/uL (4.5-11.0)
[2024-06-23 12:04] LABS: Prothrombin Time 11.6 SECONDS (9.4-12.5)
[2024-06-23 12:06] LABS: PTT Partial Thromboplastin Tim 31 SECONDS (25.1-36.5)
[2024-06-23 12:08] LABS: Alanine Aminotransferase 20 IU/L (<35); Albumin Globulin Ratio 1.2 (1.0-2.8); Alkaline Phosphatase 108 U/L (38-126); Aspartate Aminotransferase 24 IU/L (14-36); BUN Creatinine Ratio 14.4 (6-22); Bilirubin Total 1.1 mg/dL (0.2-1.3); Blood Urea Nitrogen 16 mg/dL (7-17); Calcium 9.3 mg/dL (8.4-10.2); Carbon Dioxide 28 mmol/L (22-32); Chloride 105 mmol/L (98-107); Estimated Glomerular Filt Rate 52 mL/min (>60); Globulin 3.4 g/dL (1.7-4.1); Glucose 104 mg/dL (80-110); HEMOLYSIS < 15 (0-50); Potassium 3.4 mmol/L (3.4-5.1); Sodium 138 mmol/L (137-145); Total Protein 7.4 g/dL (6.3-8.2)
[2024-06-23] MEDS: SODIUM CHLORIDE 0.9% 1,000 ML 1000 ML IV (12:18)
[2024-06-23 12:40] LABS: Occult Blood 1 Positive (Negative); Sample 1 Time 1155
== END 2024-06-23 16:35 | disposition home or self-care (01) ==
PROVIDERS: Emergency Provider Emergency Medicine; Family Provider Obstetrics & Gynecology; PCP Internal Medicine
DX: K57.31 Diverticulosis of large intestine without perforation or abscess with bleeding (principal)
CPT/HCPCS: 80053; 81003; 82270; 85025; 85610; 85730; 86850; 86900; 86901; 93005; 96361; 96374; 99284; J2470

== ENCOUNTER → 2024-07-06 16:51 | Outpatient (CLI) | payer MEDICARE, OTHER, SELFPAY ==
[2024-07-06 17:28] LABS: Hematocrit 37.9 % (36-46); Hemoglobin 13.2 g/dL (12.0-16.0)
[2024-07-06 17:57] LABS: Blood Urea Nitrogen 16 mg/dL (7-17); Calcium 9.5 mg/dL (8.4-10.2); Carbon Dioxide 27 mmol/L (22-32); Chloride 104 mmol/L (98-107); Estimated Glomerular Filt Rate > 60 mL/min (>60); Glucose 98 mg/dL (80-110); HEMOLYSIS < 15 (0-50); Potassium 3.8 mmol/L (3.4-5.1); Sodium 138 mmol/L (137-145)
== END ==
LOC: LAB 16:52
PROVIDERS: Family Provider Obstetrics & Gynecology; PCP Internal Medicine; Referring Provider Internal Medicine; Visit Provider Internal Medicine
DX: I10 Essential (primary) hypertension (principal); K92.2 Gastrointestinal hemorrhage, unspecified
CPT/HCPCS: 36415; 80048; 85014; 85018

== ENCOUNTER → 2025-03-20 12:44 | Outpatient (CLI) | payer MEDICARE, OTHER, SELFPAY ==
--- NOTE | 2025-03-20 12:45 | DI.MG.S_ITS ---
MM screening mammo BI: 03/20/2025. BI-RADS: 2 CLINICAL: 75-year old female for bilateral screening mammogram. Tyrer-Cuzick lifetime risk of 3.6%. No personal or first-degree family history of breast cancer. PRIOR EXAMS 01/04/2024, 06/01/2022, 05/05/2021, 05/03/2020, MAMMOGRAPHY TECHNIQUE: 2D and 3D (tomosynthesis) digital mammographic views obtained, with additional images as needed for full coverage. Current study was also evaluated with a Computer Aided Detection (CAD) system. DENSITY C. The breasts are heterogeneously dense, which may obscure small masses. MAMMOGRAPHY FINDINGS Right: Biopsy marker present on the right. There are no suspicious masses, calcifications, or other findings in the breast. Left: Biopsy markers present on the left. There are no suspicious masses, calcifications, or other findings in the breast. IMPRESSION: * No evidence of malignancy with benign findings. RECOMMENDATIONS Bilateral * Annual screening mammography. OVERALL ASSESSMENT CATEGORY BI-RADS-2: Benign. The [employer] recommends annual screening mammography beginning at age 40 for women with average risk of breast cancer. ELECTRONICALLY SIGNED: Joni Marcelino M.D. on 03/21/2025 at 10:07:52 AM PT Interpreting Station ID: [id number]
== END ==
LOC: MAMMO 12:45
PROVIDERS: Family Provider Obstetrics & Gynecology; PCP Internal Medicine; Referring Provider Internal Medicine; Visit Provider Internal Medicine
DX: Z12.31 Encounter for screening mammogram for malignant neoplasm of breast (principal); R92.333 Mammographic heterogeneous density, bilateral breasts
CPT/HCPCS: 77063; 77067

== ENCOUNTER → 2025-04-04 13:29 | Outpatient (CLI) | payer MEDICARE, OTHER, SELFPAY ==
[2025-04-04 14:07] LABS: Add Manual Diff / Slide Review NO; Hematocrit 38.3 % (36-46); Hemoglobin 13.3 g/dL (12.0-16.0); Lymphocytes Absolute Auto 1500 /uL (1100-4500); Mean Corpuscular HGB Conc 34.8 % (30-36); Mean Corpuscular Hemoglobin 29.9 PG (26-34); Mean Corpuscular Volume 86.0 fL (80-100); Platelet Count 206 X10^3/uL (150-400)
[2025-04-04 14:26] LABS: Alanine Aminotransferase 26 IU/L (<35); Albumin 4.1 g/dL (3.5-5.0); Albumin Globulin Ratio 1.4 (1.0-2.8); Alkaline Phosphatase 109 U/L (38-126); Blood Urea Nitrogen 16 mg/dL (7-17); Calcium 9.5 mg/dL (8.4-10.2); Carbon Dioxide 26 mmol/L (22-32); Chloride 104 mmol/L (98-107); Cholesterol 177 mg/dL (140-199); Estimated Glomerular Filt Rate > 60 mL/min (>60); Globulin 2.9 g/dL (1.7-4.1); Glucose 91 mg/dL (70-99); HDL Cholesterol 47 mg/dL (40-60); HEMOLYSIS < 15 (0-50); Potassium 3.6 mmol/L (3.4-5.1); Sodium 139 mmol/L (137-145); Total Protein 7.0 g/dL (6.3-8.2); Triglycerides 290 mg/dL (35-150)
[2025-04-04 14:53] LABS: TSH w/ Reflex to FT4 0.87 uIU/mL (0.47-4.68)
== END ==
PROVIDERS: Family Provider Obstetrics & Gynecology; PCP Internal Medicine; Referring Provider Internal Medicine; Visit Provider Internal Medicine
DX: E03.9 Hypothyroidism, unspecified (principal); E55.9 Vitamin D deficiency, unspecified; I10 Essential (primary) hypertension; E78.2 Mixed hyperlipidemia; N18.31 Chronic kidney disease, stage 3a; D64.9 Anemia, unspecified
CPT/HCPCS: 36415; 80053; 80061; 82652; 84443; 85025